=== PATIENT | female | born 1955 | race Caucasian/White ===

== ENCOUNTER → 2023-01-15 07:32 | Outpatient (CLI) | payer OTHER, SELFPAY ==
[2023-01-15 10:13] LABS: Urine N gonorrhoeae NOT DETECTED
[2023-01-15 10:14] LABS: Urine Chlamydia NOT DETECTED
== END ==
PROVIDERS: Visit Provider Nurse Practitioner Family
DX: N89.8 Other specified noninflammatory disorders of vagina (principal); N39.0 Urinary tract infection, site not specified; N94.9 Unspecified condition associated with female genital organs and menstrual cycle
CPT/HCPCS: 87086; 87210; 87491; 87591